=== PATIENT | male | born 1960 | race Caucasian/White ===

== ENCOUNTER → 2020-05-29 18:26 | Outpatient (ROUT) | payer SELFPAY ==
[2020-05-29 19:02] LABS: Add Manual Diff / Slide Review NO; Basophils Absolute Auto 100 /uL (0-100); Basophils Percent Auto 0.8 % (0-2); Eosinophils Absolute Auto 200 /uL (0-450); Eosinophils Percent Auto 2.4 % (2-4); Hematocrit 42.9 % (41-53); Hemoglobin 14.6 g/dL (13.5-17.5); Lymphocytes Absolute Auto 1200 /uL (1100-4500); Lymphocytes Percent Auto 19.7 % (25-40); Mean Corpuscular HGB Conc 33.9 % (30-36); Mean Corpuscular Hemoglobin 29.3 PG (26-34); Mean Corpuscular Volume 86.2 fL (80-100); Monocytes Absolute Auto 400 /uL (0-900); Monocytes Percent Auto 6.2 % (3-14); Neutrophils Absolute Auto 4500 /uL (1500-7000); Neutrophils Percent Auto 70.9 % (50-75); Platelet Count 220 X10^3/uL (150-400); Red Blood Cell Count 4.97 X10^6/uL (4.5-5.9); Red Cell Distribution Width 13.5 % (11.6-14.8); White Blood Cell Count 6.3 X10^3/uL (4.5-11.0)
[2020-05-29 19:27] LABS: Alanine Aminotransferase 23 IU/L (<50); Albumin 4.6 g/dL (3.5-5.0); Albumin Globulin Ratio 1.5 (1.0-2.8); Alkaline Phosphatase 49 U/L (38-126); Aspartate Aminotransferase 31 IU/L (17-59); BUN Creatinine Ratio 19.8 (6-22); Bilirubin Total 0.5 mg/dL (0.2-1.3); Blood Urea Nitrogen 16 mg/dL (9-20); Carbon Dioxide 31 mmol/L (22-32); Chloride 102 mmol/L (98-107); Cholesterol 321 mg/dL (140-199); Estimated Glomerular Filt Rate > 60.0 mL/min (>60); Globulin 3.1 g/dL (1.7-4.1); Glucose 102 mg/dL (70-100); HDL Cholesterol 49 mg/dL (40-60); HEMOLYSIS < 15 (0-50); LDL Cholesterol Calculated 215 mg/dL (<100); Potassium 4.7 mmol/L (3.4-5.1); Sodium 139 mmol/L (137-145); Total Protein 7.7 g/dL (6.3-8.2); Triglycerides 284 mg/dL (35-150)
[2020-05-29 19:45] LABS: TSH w/ Reflex to FT4 0.89 uIU/mL (0.47-4.68)
[2020-05-29 19:56] LABS: Prostate Specific Antigen Scrn 1.07 ng/mL (0.1-4.0)
== END ==
PROVIDERS: Visit Provider Internal Medicine
DX: Z00.00 Encounter for general adult medical examination without abnormal findings (principal); E78.2 Mixed hyperlipidemia; Z12.5 Encounter for screening for malignant neoplasm of prostate; D48.5 Neoplasm of uncertain behavior of skin
CPT/HCPCS: 80053; 80061; 84443; 85025; G0103

== ENCOUNTER 2020-11-05 20:13 | Emergency (ER) | payer OTHER, SELFPAY ==
[2020-11-05 20:18] VITALS: BP 132/77; PULSE 69; RESP 17; TEMP 36.2; O2SAT 99; BMI 27.9
[2020-11-05 20:52] VITALS: PULSE 66; O2SAT 100
[2020-11-05 21:00] VITALS: PULSE 64; O2SAT 100
[2020-11-05] MEDS: SODIUM CHLORIDE 0.9% 1,000 ML 1000 ML IV (21:01)
[2020-11-05] MEDS: ONDANSETRON 4 MG/2 ML INJ IV (21:01)
[2020-11-05] MEDS: KETOROLAC 30 MG/ML VIAL 15 MG IV (21:01)
[2020-11-05] MEDS: HYDROMORPHONE 0.5 MG INJ IV ×2 (21:02→22:00)
[2020-11-05 21:11] LABS: Add Manual Diff / Slide Review NO; Basophils Absolute Auto 0 /uL (0-100); Basophils Percent Auto 0.3 % (0-2); Eosinophils Absolute Auto 100 /uL (0-450); Eosinophils Percent Auto 1.1 % (2-4); Hematocrit 43.4 % (41-53); Hemoglobin 14.3 g/dL (13.5-17.5); Lymphocytes Absolute Auto 1400 /uL (1100-4500); Lymphocytes Percent Auto 18.4 % (25-40); Mean Corpuscular Hemoglobin 28.6 PG (26-34); Mean Corpuscular Volume 86.8 fL (80-100); Monocytes Absolute Auto 500 /uL (0-900); Monocytes Percent Auto 6.6 % (3-14); Neutrophils Absolute Auto 5600 /uL (1500-7000); Neutrophils Percent Auto 73.6 % (50-75); Platelet Count 216 X10^3/uL (150-400); Red Cell Distribution Width 13.3 % (11.6-14.8); White Blood Cell Count 7.7 X10^3/uL (4.5-11.0)
[2020-11-05 21:16] LABS: Alanine Aminotransferase 24 IU/L (<50); Albumin 4.6 g/dL (3.5-5.0); Albumin Globulin Ratio 1.4 (1.0-2.8); Alkaline Phosphatase 42 U/L (38-126); Aspartate Aminotransferase 26 IU/L (17-59); BUN Creatinine Ratio 14.1 (6-22); Bilirubin Total 0.5 mg/dL (0.2-1.3); Blood Urea Nitrogen 12 mg/dL (9-20); Calcium 9.8 mg/dL (8.4-10.2); Carbon Dioxide 27 mmol/L (22-32); Chloride 103 mmol/L (98-107); Estimated Glomerular Filt Rate > 60.0 mL/min (>60); Globulin 3.2 g/dL (1.7-4.1); Glucose 120 mg/dL (70-100); HEMOLYSIS < 15 (0-50); Potassium 3.9 mmol/L (3.4-5.1); Sodium 139 mmol/L (137-145); Total Protein 7.8 g/dL (6.3-8.2)
--- NOTE | 2020-11-05 22:22 | ED_ITS ---
HPI - General Adult General Chief complaint: Urogenital-Male Stated complaint: LOWER STOMACH PAIN Time Seen by Provider: 11/05/20 20:55 Source: patient Mode of arrival: Ambulatory Limitations: no limitations History of Present Illness HPI narrative: 60-year-old gentleman with history of hyperlipidemia and prior kidney stones presents with left lower abdominal and left flank pain. He had been having issues starting around 10:00 a.m. this morning with a dull ache that has waxed and waned over the course of the day getting worse and worse. In the emergency room his pain is quite severe. He describes no fevers, cough, chills, difficulty with urinating but has noticed increased frequency with the pain. No constipation or diarrhea, no palpitations or chest pain no headaches or myalgias. Related Data Previous Rx's Medication Instructions Recorded oxycodone-acetaminophen 1 tab PO Q6H PRN 5 Days #12 tab 11/06/20 tamsulosin 0.4 mg PO DAILY #30 cap 11/06/20 Allergies Allergy/AdvReac Type Severity Reaction Status Date / Time No Known Allergies Allergy Uncoded 09/24/17 11:57 Review of Systems Review of Systems Narrative: Remainder of complete review of systems is otherwise unremarkable except for that included in the HPI. Patient History Medical History Hyperlipidemia Ureterolithiasis Social History Smoking Status: Never smoker Smoking Status: Never smoker alcohol intake frequency: a few times a month Alcohol type: beer Substance Use Type: does not use Exam Narrative Exam Narrative: General: Healthy appearing, severe pain. Well-nourished well- developed HEENT: Moist mucous membranes, normal sclera with reactive pupils, Respiratory: Lungs are clear to auscultation, no wheezing no rales no rhonchi. Full and symmetrical air movement Cardiac: Regular rate and rhythm no murmurs no bruits Abdomen: Soft, nontender, good bowel tones, left flank pain Skin: Warm and dry, no rashes Neurologic: Grossly neurologically intact with no obvious asymmetries or a bnormalities Extremities: No trauma, well perfused Psych: Cooperative, appropriate insight and affect Initial Vital Signs Initial Vital Signs: Vital Signs Temperature 97.2 F L 11/05/20 20:18 Pulse Rate 69 11/05/20 20:18 Respiratory Rate 17 11/05/20 20:18 Blood Pressure 132/77 11/05/20 20:18 Pulse Oximetry 99 11/05/20 20:18 Course Orders Ordered: ED Orders 11/05/20 21:00 Complete Blood Count AUTO DIFF Stat Comprehensive Metabolic Panel Stat 11/05/20 22:46 CT kidney ureter bladder (KUB) Stat Hydromorphone HCl (Hydromorphone 0.5 Mg Inj) 0.5 mg IV Q15MIN PRN PRN Reason: Pain, Last Admin: 11/05/20 22:00 Dose: 0.5 mg Documented by: Admin: 11/05/20 21:02 Dose: 0.5 mg Documented by: BETO Discontinued Medications Hydromorphone HCl (Hydromorphone 1 Mg Inj) 1 mg IV NOW ONE Stop: 11/05/20 22:22 Last Admin: 11/05/20 22:24 Dose: 1 mg Documented by: BETO Sodium Chloride (Normal Saline 0.9%) 1,000 mls @ 1,000 mls/hr IV BOLUS ONE Stop: 11/05/20 21:54 Last Infusion: 11/05/20 22:27 Dose: 0 mls/hr Documented by: Admin: 11/05/20 21:01 Dose: 1,000 mls/hr Documented by: BETO Lidocaine HCl 7 ml/ Sodium (Chloride) 57 mls @ 342 mls/hr IV NOW ONE Stop: 11/05/20 22:56 Last Infusion: 11/06/20 00:33 Dose: 0 mls/hr Documented by: Admin: 11/05/20 23:03 Dose: 342 mls/hr Documented by: BETO Ketorolac Tromethamine (Ketorolac 30 Mg/Ml Vial) 15 mg IV NOW ONE Stop: 11/05/20 20:56 Last Admin: 11/05/20 21:01 Dose: 15 mg Documented by: BETO Ondansetron HCl (Ondansetron 4 Mg/2 Ml Inj) 4 mg IV NOW ONE Stop: 11/05/20 20:56 Last Admin: 11/05/20 21:01 Dose: 4 mg Documented by: BETO Oxycodone/Acetaminophen (Oxycodone/Apap 5/325 Prepack) 1 bottle MISC SEEINSTR ONE Stop: 11/06/20 00:50 Tamsulosin HCl (Tamsulosin 0.4 Mg Capsule) 0.4 mg PO NOW ONE Stop: 11/06/20 00:52 Vital Signs Vital signs: Vital Signs - 8 hr 11/05/20 20:18 11/05/20 20:52 11/05/20 21:00 Temperature 97.2 F L Pulse Rate 69 66 64 Respiratory Rate 17 Blood Pressure 132/77 Pulse Oximetry 99 100 100 Medical Decision Making Medical Records Medical records reviewed: Yes I reviewed the patient's medical records. Lab Data Lab results reviewed: Yes I reviewed the patient's lab results. Result diagrams: 11/05/20 21:00 11/05/20 21:00 Labs: Lab Results 11/05/20 11/05/20 Range/Units 21:00 21:00 WBC 7.7 (4.5-11.0) X10^3/uL RBC 5.00 (4.5-5.9) X10^6/uL Hgb 14.3 (13.5-17.5) g/dL Hct 43.4 (41-53) % MCV 86.8 (80-100) fL MCH 28.6 (26-34) PG MCHC 33.0 (30-36) % RDW 13.3 (11.6-14.8) % Plt Count 216 (150-400) X10^3/uL Neut % (Auto) 73.6 (50-75) % Lymph % (Auto) 18.4 L (25-40) % [place] % (Auto) 6.6 (3-14) % Eos % (Auto) 1.1 L (2-4) % Baso % (Auto) 0.3 (0-2) % Neut # (Auto) 5600 (0537-8691) /uL Lymph # (Auto) 1400 (8051-3869) /uL [place] # (Auto) 500 (0-900) /uL Eos # (Auto) 100 (0-450) /uL Baso # (Auto) 0 (0-100) /uL Sodium 139 (137-145) mmol/L Potassium 3.9 (3.4-5.1) mmol/L Chloride 103 (98-107) mmol/L Carbon Dioxide 27 (22-32) mmol/L BUN 12 (9-20) mg/dL Creatinine 0.85 (0.66-1.25) mg/dL Estimated GFR > 60.0 (>60) mL/min BUN/Creatinine Ratio 14.1 (6-22) Glucose 120 H (70-100) mg/dL Calcium 9.8 (8.4-10.2) mg/dL Total Bilirubin 0.5 (0.2-1.3) mg/dL AST 26 (17-59) IU/L ALT 24 (<50) IU/L Alkaline Phosphatase 42 (38-126) U/L Total Protein 7.8 (6.3-8.2) g/dL Albumin 4.6 (3.5-5.0) g/dL Globulin 3.2 (1.7-4.1) g/dL Albumin/Globulin Ratio 1.4 (1.0-2.8) Urine Dip Bedside Urine Glucose Negative Bedside Urine Bilirubin - Negative Bedside Urine Ketone - Negative Urine Specific [place] 1.030 Bedside Urine Occult Blood +++ Bedside Urine pH 6 Bedside Urine Protein - Negative Bedside Urine Urobilinogen - Negative Bedside Urine Nitrite - Negative Bedside Urine Leukocytes - Negative Esterase Point of care testing: Urine Dip Bedside Urine Glucose Negative Bedside Urine Bilirubin - Negative Bedside Urine Ketone - Negative Urine Specific [place] 1.030 Bedside Urine Occult Blood +++ Bedside Urine pH 6 Bedside Urine Protein - Negative Bedside Urine Urobilinogen - Negative Bedside Urine Nitrite - Negative Bedside Urine Leukocytes - Negative Esterase Imaging Data CT scan - abdomen/pelvis: Radiologist's Impression: Edematous left kidney with hydronephrosis secondary to an obstructive 3 mm stone in the left UVJ Rosa Cedeno MD [facility] Narrative Medical decision making narrative: 60-year-old gentleman presents with increasing flank pain over the course of the day. His last episode of kidney stone requiring medical intervention was in 1999 he does believe he passed a small in probably 3 weeks ago based on mild symptoms, discolored urine and rapid resolution. Initially pain was well controlled with Toradol and half a mg of Di laudid. Returned and required larger doses of Dilaudid without affect. IV lidocaine was added and the combination seem to prove effective. He is given a L of fluid as well. CT scan confirms 3 mm stone in the left UVJ without other intra-abdominal abnormalities. There is no evidence for infection at this time. Pain prior to discharge is well controlled. He is given instructions on use of tamsulosin as well as Percocet for severe pain control. He is safe for home discharge will follow-up with his primary care physician Discharge Plan Departure Patient Disposition: Home Clinical Impression: Ureterolithiasis Instructions: DI for Kidney Stones Activity Restrictions/Additional Instructions: Thank you for coming in today You have a 3 mm kidney stone on the left side just about ready to drop into your bladder. This is the cause of your pain. I am going to send you home with a couple tablets of Percocet and a prescription for more. You can use this before the pain builds up to the levels your experiencing this evening. Using 400 mg of ibuprofen (2 [id number] pills) and 1 Tylenol every 6 hours can be very helpful in controlling pain. For severe pain to ibuprofen and 1 Percocet will be helpful. Percocet is a narcotic and will make you constipated, please make sure you are using a stool softener, extra water extra fiber to avoid this complication Please strain your urine and once you see this 3 mm stone come out you can stop taking the Flomax/tamsulosin. This medicine is to help the stone get through the ureter a bit more easily If you have recurrent pain that can not be controlled with oral pain medications, developed fevers chills or other concerning symptoms please return to the ER for further evaluation Prescriptions: New oxycodone-acetaminophen 5-325 mg tablet 1 tab PO Q6H PRN (Reason: pain) 5 Days Qty: 12 RF: 0 tamsulosin 0.4 mg capsule 0.4 mg PO DAILY Qty: 30 RF: 0
[2020-11-05] MEDS: HYDROMORPHONE 1 MG INJ IV (22:24)
--- NOTE | 2020-11-05 22:39 | PC.NURSE ---
Room air SpO2 noted at 85% after dilaudid admin and pt sleeping. Easily arousable. 2 liters O2 applied by NC with sats now 99%
--- NOTE | 2020-11-05 22:46 | DI.CT.S_ITS ---
PROCEDURE: CT KIDNEY URETER BLADDER (KUB) INDICATIONS: renal colic TECHNIQUE: Noncontrast 5 mm thick sections acquired from the diaphragms to the symphysis. 5 mm thick coronal and sagittal reformats were then performed. For radiation dose reduction, the following was used: automated exposure control, adjustment of mA and/or kV according to patient size. COMPARISON: None. FINDINGS: Image quality: Excellent. Lung bases: Lung bases are clear. Heart size is normal. Question of small hiatal hernia. Urinary system: Both kidneys are normal in size. Obstructing calculus at the left UVJ measuring 0.4 cm, (2/78). Mild left hydroureteronephrosis. Nonobstructing right kidney stone measuring at 0.8 x 0.5 cm, (4/34). Bladder wall thickness is normal; no calcified bladder stones. Other solid organs: Liver is normal in size. Gallbladder is unremarkable. Pancreas is normal in contours. Spleen is normal in size. No adrenal nodules. Peritoneum and bowel: Unenhanced bowel loops demonstrate normal wall thickness and caliber. Normal appendix. No free fluid or air. Nodes and vessels: No retroperitoneal or mesenteric adenopathy by size criteria. Aorta and inferior vena cava are normal in caliber. Mild calcified plaque. Abdominal wall: No ventral hernias. Pelvis: No free pelvic fluid. No definite inguinal hernias or adenopathy. Bones: No suspicious bony lesions. Mild to moderate DDD. No vertebral body compression fractures. IMPRESSION: 1. Left UVJ obstructing calculus measuring at 0.4 cm with mild left hydroureteronephrosis. 2. Additional nonobstructing right kidney stone. This report is concordant with the overnight preliminary interpretation. Dictated by: Filipe Scott M.D. on 11/06/2020 at 8:01 Approved by: Filipe Scott M.D. on 11/06/2020 at 8:07
[2020-11-05] MEDS: LIDOCAINE 2% 7 ML in SODIUM CHLORIDE 0.9% 50 ML 342 ML IV (23:03)
[2020-11-06] MEDS: TAMSULOSIN 0.4 MG CAPSULE PO (01:07)
[2020-11-06] MEDS: OXYCODONE/APAP 5/325 PREPACK 1 BOTTLE MISC (01:07)
[2020-11-06 01:32] VITALS: BP 127/79; PULSE 77; RESP 16; O2SAT 98
--- NOTE | 2020-11-06 19:18 | PC.NURSE ---
called in prescription for flomax to [facility] as pt states he lost it. Approved by Dr. Yarbrough.
== END 2020-11-06 01:15 | disposition home or self-care (01) ==
PROVIDERS: Emergency Provider Emergency Medicine
DX: N20.1 Calculus of ureter (principal); Z87.442 Personal history of urinary calculi
CPT/HCPCS: 36415; 51798; 74176; 80053; 81003; 85025; 96361; 96365; 96375; 96376; 99284; J1170; J1885; J2405

== ENCOUNTER 2024-06-14 14:41 | Emergency (ER) | payer OTHER, SELFPAY ==
[2024-06-14] VITALS (13 sets, daily range): BP systolic 119–137; BP diastolic 70–83; PULSE 64–75; RESP 12–21; TEMP 36.8; O2SAT 95–99; BMI 32.1
--- NOTE | 2024-06-14 14:42 | EKG_ITS ---
[address] [address] Test Date: 2024-06-14 Pat Name: Suleman Dalal Department: [facility] Room: Gender: Male Churner: ROBERT HERNÁNDEZ : 1960 Requested By: Order Number: [id number] Reading MD: Vasquez Sue Measurements Intervals [place] Rate: 73 P: 49 [place]: 164 QRS: 1 QRSD: 92 T: 27 QT: 374 QTc: 412 Interpretive Statements Sinus rhythm with premature atrial complexes Electronically Signed On 06-17-2024 9:42:51 PST by Vasquez Sue
--- NOTE | 2024-06-14 14:42 | DI.RAD.S_ITS ---
PROCEDURE: XR CHEST 1V INDICATIONS: chest pain TECHNIQUE: One view of the chest was acquired. COMPARISON: None. FINDINGS: Surgical changes and devices: None. Lungs and pleura: Lungs are clear. No pleural effusions or pneumothorax. Mediastinum: Mediastinal contours appear normal. Heart size is normal. Bones and chest wall: No suspicious bony lesions. Overlying soft tissues appear unremarkable. IMPRESSION: No acute cardiopulmonary abnormality is seen. Dictated by: Nigel Rincon M.D. on 06/14/2024 at 15:11 Approved by: Nigel Rincon M.D. on 06/14/2024 at 15:12
--- NOTE | 2024-06-14 16:37 | ED.CHESTPAIN ---
HPI - Chest Pain General Chief Complaint: Chest Pain Stated Complaint: heart problems, chest pain Time Seen by Provider: 06/14/24 16:08 Source: patient Mode of arrival: Ambulatory Limitations: no limitations History of Present Illness HPI narrative: Patient is a 64-year-old male without significant past medical history presenting today with chest pain. He reports he started having left-sided chest pain when he was walking in it would stop when he stopped. He reports the pain is sharp shooting 1 particular area lasting only seconds and quickly resolving. It is nonradiating he denies any shortness of breath. He has no known coronary artery disease no known family history he has a nonsmoker. No abdominal pain nausea or vomiting. No recurrence of pain Related Data Allergies Allergy/AdvReac Type Severity Reaction Status Date / Time No Known Allergies Allergy Uncoded 04/01/24 14:45 Patient History Medical History Hyperlipidemia Ureterolithiasis Social History Smoking Status: Former smoker Smoking Status: Former smoker alcohol intake frequency: a few times a month Alcohol type: beer Exam Initial Vital Signs Initial Vital Signs: Vital Signs Temperature 98.2 F 06/14/24 14:43 Pulse Rate 75 06/14/24 14:43 Respiratory Rate 16 06/14/24 14:43 Blood Pressure 134/83 06/14/24 14:43 Pulse Oximetry 95 06/14/24 14:43 Oxygen Delivery Method Room Air 06/14/24 14:43 GENERAL: Alert pleasant well-appearing 64-year-old male and in no acute distress. HEENT: Head atraumatic,EOMI, pupils reactive, face symmetric, moist mucous membranes CARDIOVASCULAR: Regular rate and rhythm without murmurs, rubs or gallops. Non reproducible to palpation or arm movement RESPIRATORY: Breath sounds equal bilaterally, no wheezes rales or rhonchi. ABDOMEN: Soft, nontender. Normoactive bowel sounds all 4 quadrants. No guarding or rebound. EXTREMITIES: Normal range of motion, no clubbing or edema. Neurovascularly intact NEUROLOGICAL: Alert and oriented x4.Normal gait and speech. Cranial nerves II through XII grossly intact. SKIN: Warm, dry, no laceration, no petechiae, no rashes or lesions. Scores HEART Score Heart Score history: Slightly Suspicious Heart Score EKG: Normal Heart Score Age: 45-64 years old Heart Score risk factors: No known risk factors Heart Score troponin: < or = to normal limit Heart Score Total: 1 Course Orders Ordered: ED Orders 06/14/24 14:42 XR chest 1V Stat EKG-12 Lead Stat 06/14/24 16:46 Complete Blood Count AUTO DIFF Stat Comprehensive Metabolic Panel Stat D Dimer Stat Lipase Stat Magnesium Stat NT-proBNP (BNP-Adult 18+) Stat PTT Partial Thromboplastin Oleg Stat Prothrombin Time INR Stat Troponin & CK Cardiac Panel Stat 06/14/24 18:30 Trop I [Troponin I] Stat Discontinued Medications Aspirin (Aspirin 81 Mg Chew Tab) 324 mg PO NOW ONE Stop: 06/14/24 14:43 Last Admin: 06/14/24 19:14 Dose: Not Given Vital Signs Vital signs: Vital Signs - 8 hr 06/14/24 14:43 06/14/24 15:18 06/14/24 15:19 Temperature 98.2 F Pulse Rate 75 70 Respiratory Rate 16 Blood Pressure 134/83 134/80 Pulse Oximetry 95 98 Oxygen Delivery Method Room Air 06/14/24 15:19 06/14/24 15:30 06/14/24 15:30 Temperature Pulse Rate 71 69 Respiratory Rate 21 Blood Pressure 125/75 Pulse Oximetry 96 96 Oxygen Delivery Method 06/14/24 16:00 06/14/24 16:00 06/14/24 16:30 Temperature Pulse Rate 69 Respiratory Rate 14 Blood Pressure 126/72 119/74 Pulse Oximetry 97 Oxygen Delivery Method 06/14/24 16:30 06/14/24 17:17 06/14/24 17:30 Temperature Pulse Rate 67 74 69 Respiratory Rate 13 12 Blood Pressure Pulse Oximetry 97 98 Oxygen Delivery Method 06/14/24 17:44 06/14/24 17:44 06/14/24 18:00 Temperature Pulse Rate 69 Respiratory Rate 15 Blood Pressure 119/79 127/83 Pulse Oximetry 97 Oxygen Delivery Method 06/14/24 18:00 06/14/24 18:30 06/14/24 18:30 Temperature Pulse Rate 67 65 Respiratory Rate 16 14 Blood Pressure 125/73 Pulse Oximetry 98 98 Oxygen Delivery Method 06/14/24 19:00 06/14/24 19:00 Temperature Pulse Rate 64 Respiratory Rate 19 Blood Pressure 126/70 Pulse Oximetry 99 Oxygen Delivery Method MDM - Chest Pain Lab Data 06/14/24 16:46 06/14/24 16:46 Labs: Lab Results 06/14/24 06/14/24 Range/Units 16:46 18:30 WBC 6.4 (4.5-11.0) X10^3/uL RBC 4.87 (4.5-5.9) X10^6/uL Hgb 14.4 (13.5-17.5) g/dL Hct 42.9 (41-53) % MCV 88.0 (80-100) fL MCH 29.5 (26-34) PG MCHC 33.5 (30-36) % RDW 13.4 (11.6-14.8) % Plt Count 211 (150-400) X10^3/uL Neut % (Auto) 62.0 (50-75) % Lymph % (Auto) 26.9 (25-40) % [place] % (Auto) 8.1 (3-14) % Eos % (Auto) 2.3 (2-4) % Baso % (Auto) 0.7 (0-2) % Neut # (Auto) 4000 (1716-2410) /uL Lymph # (Auto) 1700 (7819-5566) /uL [place] # (Auto) 500 (0-900) /uL Eos # (Auto) 100 (0-450) /uL Baso # (Auto) 0 (0-100) /uL PT 11.8 (9.4-12.5) SECONDS INR 1.0 (0.9-1.3) APTT 38 H (25.1-36.5) SECONDS D-Dimer 309 (<500) ng/ml Sodium 135 L (137-145) mmol/L Potassium 4.0 (3.4-5.1) mmol/L Chloride 103 (98-107) mmol/L Carbon Dioxide 27 (22-32) mmol/L BUN 19 (9-20) mg/dL Creatinine 1.03 (0.66-1.25) mg/dL Estimated GFR > 60 (>60) mL/min BUN/Creatinine Ratio 18.4 (6-22) Glucose 89 (80-110) mg/dL Calcium 9.5 (8.4-10.2) mg/dL Magnesium 1.9 (1.6-2.3) mg/dL Total Bilirubin 0.7 (0.2-1.3) mg/dL AST 49 (17-59) IU/L ALT 70 H (<50) IU/L Alkaline Phosphatase 47 (38-126) U/L Total Creatine Kinase 152 (55-170) U/L Troponin I < 0.012 < 0.012 (0.01-0.034) ng/mL NT-Pro-B Natriuret Pep < 20 (<125) pg/mL Total Protein 7.9 (6.3-8.2) g/dL Albumin 4.5 (3.5-5.0) g/dL Globulin 3.4 (1.7-4.1) g/dL Albumin/Globulin Ratio 1.3 (1.0-2.8) Lipase 134 (23-300) U/L Imaging Data Chest x-ray: Radiologist's Impression: PROCEDURE: XR CHEST 1V INDICATIONS: chest pain TECHNIQUE: One view of the chest was acquired. COMPARISON: None. FINDINGS: Surgical changes and devices: None. Lungs and pleura: Lungs are clear. No pleural effusions or pneumothorax. Mediastinum: Mediastinal contours appear normal. Heart size is normal. Bones and chest wall: No suspicious bony lesions. Overlying soft tissues appear unremarkable. IMPRESSION: No acute cardiopulmonary abnormality is seen. Dictated by: Nigel Rincon M.D. on 06/14/2024 at 15:11 ECG Data Attestation: I personally reviewed and interpreted this ECG as follows: Prior ECG tracings: available for review Interpretation: Normal sinus rhythm rate 73 [place] interval 164 QRS [address] changes MDM Narrative Medical decision making narrative: [facility] CC: Chest pain Complicating co-morbidities: No known medical problems Medical records reviewed: PCP records reviewed Differential considered: Acute coronary syndrome pneumonia pleurisy PE Exam documented above, pertinent findings include: Nonreproducible chest pain awake alert oriented Lab Test results independently reviewed as above. Pertinent findings: Troponin negative x2 WBC 6.4 hemoglobin 14 4 hematocrit 42.9 platelets 211 Electrolytes stable creatinine of 1.0 Independently reviewed EKG as above No ischemia Imaging studies independently reviewed: No cardiopulmonary Consultations: None Treatments: None Re-evaluations: No recurrence of chest pain Discussion: Patient is a 64-year-old male presenting today with chest pain that he noticed while active lasting only a couple of seconds no recurrence of pain here in the ED it is nonradiating. He has no known risk factors here with a heart score of 1. 2- troponins no ischemia noted on his EKGs. At this time discussed with the may need outpatient follow-up Discharge Plan Departure Patient Disposition: Home Clinical Impression: Atypical chest pain Instructions: DI for Atypical Chest Pain Activity Restrictions/Additional Instructions: *You have been diagnosed with atypical chest pain *What to do: At this time I do recommend he follow up with your primary care provider in regards to further cardiac stress testing such as stress test and echocardiogram *Continue to take medications as directed *Follow up with your primary care provider in 2-3 days or call [phone] *Return to ER if you should have increasing chest pain shortness of breath or any new, worsening or concerning symptoms Referrals: Evy Stuart DO [Primary Care Provider] - Stand Alone Forms: Patient Portal/API/Survey
[2024-06-14 16:54] LABS: Add Manual Diff / Slide Review NO; Basophils Absolute Auto 0 /uL (0-100); Basophils Percent Auto 0.7 % (0-2); Eosinophils Absolute Auto 100 /uL (0-450); Eosinophils Percent Auto 2.3 % (2-4); Hematocrit 42.9 % (41-53); Hemoglobin 14.4 g/dL (13.5-17.5); Lymphocytes Absolute Auto 1700 /uL (1100-4500); Lymphocytes Percent Auto 26.9 % (25-40); Mean Corpuscular HGB Conc 33.5 % (30-36); Mean Corpuscular Hemoglobin 29.5 PG (26-34); Monocytes Absolute Auto 500 /uL (0-900); Monocytes Percent Auto 8.1 % (3-14); Neutrophils Absolute Auto 4000 /uL (1500-7000); Platelet Count 211 X10^3/uL (150-400); Red Blood Cell Count 4.87 X10^6/uL (4.5-5.9); Red Cell Distribution Width 13.4 % (11.6-14.8); White Blood Cell Count 6.4 X10^3/uL (4.5-11.0)
[2024-06-14 17:00] LABS: Prothrombin Time 11.8 SECONDS (9.4-12.5)
[2024-06-14 17:03] LABS: PTT Partial Thromboplastin Tim 38 SECONDS (25.1-36.5)
[2024-06-14 17:06] LABS: Alanine Aminotransferase 70 IU/L (<50); Albumin 4.5 g/dL (3.5-5.0); Albumin Globulin Ratio 1.3 (1.0-2.8); Alkaline Phosphatase 47 U/L (38-126); Aspartate Aminotransferase 49 IU/L (17-59); BUN Creatinine Ratio 18.4 (6-22); Bilirubin Total 0.7 mg/dL (0.2-1.3); Blood Urea Nitrogen 19 mg/dL (9-20); Calcium 9.5 mg/dL (8.4-10.2); Carbon Dioxide 27 mmol/L (22-32); Chloride 103 mmol/L (98-107); Creatine Kinase 152 U/L (55-170); Estimated Glomerular Filt Rate > 60 mL/min (>60); Globulin 3.4 g/dL (1.7-4.1); Glucose 89 mg/dL (80-110); HEMOLYSIS < 15 (0-50); Lipase 134 U/L (23-300); Magnesium 1.9 mg/dL (1.6-2.3); Sodium 135 mmol/L (137-145); Total Protein 7.9 g/dL (6.3-8.2)
[2024-06-14 17:17] LABS: NT-proBNP (BNP-Adult 18+) < 20 pg/mL (<125); Troponin I < 0.012 ng/mL (0.01-0.034)
[2024-06-14 17:22] LABS: D Dimer 309 ng/ml (<500)
[2024-06-14 19:06] LABS: Troponin I < 0.012 ng/mL (0.01-0.034)
== END 2024-06-14 19:41 | disposition home or self-care (01) ==
PROVIDERS: Emergency Provider Emergency Medicine; PCP Family Medicine
DX: R07.89 Other chest pain (principal)
CPT/HCPCS: 36415; 71045; 80053; 82550; 83690; 83735; 83880; 84484; 85025; 85379; 85610; 85730; 93005; 99283; 99284

== ENCOUNTER 2024-07-03 13:44 | Emergency (ER) | payer OTHER, SELFPAY ==
[2024-07-03 13:47] VITALS: BP 126/78; PULSE 80; RESP 18; TEMP 36.3; O2SAT 98; BMI 31.6
--- NOTE | 2024-07-03 13:51 | DI.RAD.S_ITS ---
PROCEDURE: XR FOOT LT MIN 3V INDICATIONS: INJURY TO 4TH 5TH TOES TECHNIQUE: 3 views of the foot were acquired. COMPARISON: None. FINDINGS: Bones: There is nondisplaced transverse fracture of the 5th proximal phalanx proximal metaphysis. No suspicious bony lesions. Soft tissues: No tibiotalar joint effusion. Achilles tendon appears normal. IMPRESSION: Fifth proximal phalanx fracture. Dictated by: Tatyana Vasquez M.D. on 07/03/2024 at 13:15 Approved by: Tatyana Vasquez M.D. on 07/03/2024 at 13:17
--- NOTE | 2024-07-03 13:58 | ED.LOWEXIN ---
HPI - Extremity Injury (Lower) <Susan Polanco PA-C - Last Filed: 07/03/24 15:21> General Chief Complaint: Extremity Injury, Lower Stated Complaint: L Foot Injury Time Seen by Provider: 07/03/24 13:57 Source: patient Mode of arrival: Ambulatory History of Present Illness HPI Narrative: Mr. Dalal is a very pleasant 64-year-old male with no reported past medical history who presents to the emergency department for left foot pain x1 day after stubbing it on a baby gate yesterday. Patient states at home they have baby gate up for their pets and he stepped into the gate with his right foot and then accidentally stubbed his left 4th and 5th toes directly on the baby gate. He experienced immediate pain. States he took ibuprofen and Tylenol which helped temporarily. Comes in today for worsening bruising of the left foot and concern for possible fracture. No numbness, tingling, weakness or decreased sensation in the foot or the toes. He denies any other injuries, no fall, no ankle pain, no other concerns. Related Data Home Medications Medication Instructions Recorded Confirmed No Known Home Medications 07/01/24 07/01/24 Allergies Allergy/AdvReac Type Severity Reaction Status Date / Time No Known Drug Allergies Allergy Verified 07/03/24 13:50 Review of Systems <Susan Polanco PA-C - Last Filed: 07/03/24 15:21> Review of Systems ROS Unobtainable: All systems reviewed & are unremarkable except as noted in HPI and below Patient History <Susan Polanco PA-C - Last Filed: 07/03/24 15:21> Medical History Hyperlipidemia Ureterolithiasis Social History Smoking Status: Former smoker Smoking Status: Former smoker alcohol intake frequency: a few times a month Alcohol type: beer Exam <Susan Polanco PA-C - Last Filed: 07/03/24 15:21> Narrative Exam Narrative: GENERAL: 64 year old patient appears stated age. Well-developed patient, in no acute distress. NECK: Trachea midline. Cervical ROM intact. CARDIOVASCULAR: Regular rate and rhythm. Brisk capillary refill on all toes and strong DP and PT pulses bilaterally. RESPIRATORY: ?Nonlabored respirations. ?Speaking in clear, full sentences.? EXTREMITIES: Tenderness to palpation left proximal phalanx. No tenderness to palpation of distal 5th or 4th toes. There is bruising overlying the base of the 5th and 4th toes. No tenderness to palpation of dorsal or plantar midfoot. NEURO: AOx3. ?Clear speech. ?Moves all 4 extremities appropriately, sensation intact to light touch on distal toes of bilateral feet and plantar and dorsal surfaces. SKIN: Mild erythema and ecchymosis overlying 5th and 4th MTP joints. Initial Vital Signs Initial Vital Signs: Vital Signs Temperature 97.3 F L 07/03/24 13:47 Pulse Rate 80 07/03/24 13:47 Respiratory Rate 18 07/03/24 13:47 Blood Pressure 126/78 07/03/24 13:47 Pulse Oximetry 98 07/03/24 13:47 Oxygen Delivery Method Room Air 07/03/24 13:47 <Alley Yarbrough MD - Last Filed: 07/03/24 18:26> Initial Vital Signs Initial Vital Signs: Vital Signs Temperature 97.3 F L 07/03/24 13:47 Pulse Rate 80 07/03/24 13:47 Respiratory Rate 18 07/03/24 13:47 Blood Pressure 126/78 07/03/24 13:47 Pulse Oximetry 98 07/03/24 13:47 Oxygen Delivery Method Room Air 07/03/24 13:47 Course <uSsan Polanco PA-C - Last Filed: 07/03/24 15:21> Orders Ordered: ED Orders 07/03/24 13:51 XR foot LT min 3V Stat Vital Signs Vital signs: Vital Signs - 8 hr 07/03/24 13:47 Temperature 97.3 F L Pulse Rate 80 Respiratory Rate 18 Blood Pressure 126/78 Pulse Oximetry 98 Oxygen Delivery Method Room Air <Alley Yarbrough MD - Last Filed: 07/03/24 18:26> Orders Ordered: ED Orders 07/03/24 13:51 XR foot LT min 3V Stat Vital Signs Vital signs: Vital Signs - 8 hr 07/03/24 13:47 Temperature 97.3 F L Pulse Rate 80 Respiratory Rate 18 Blood Pressure 126/78 Pulse Oximetry 98 Oxygen Delivery Method Room Air MDM - Extremity Injury (Lower) <MIKI Cooley Last Filed: 07/03/24 15:21> Medical Records Attestation: I reviewed the patient's medical records. Medical records narrative: ER visit 06/14/2024 for atypical chest pain and 11/05/2020 for ureterolithiasis. Imaging Data Left Foot X-Ray: My Impression: On my independent interpretation there is a fracture of the proximal phalanx of the 5th toe. Radiologist's Impression: PROCEDURE: XR FOOT LT MIN 3V INDICATIONS: INJURY TO 4TH 5TH TOES TECHNIQUE: 3 views of the foot were acquired. COMPARISON: None. FINDINGS: Bones: There is nondisplaced transverse fracture of the 5th proximal phalanx proximal metaphysis. No suspicious bony lesions. Soft tissues: No tibiotalar joint effusion. Achilles tendon appears normal. IMPRESSION: Fifth proximal phalanx fracture. [facility] Narrative Medical decision making narrative: 64-year-old male with no reported past medical history who presents to the emergency department for left foot pain x1 day after stubbing it on a baby gate yesterday. Differential diagnosis includes but is not limited to 5th toe fracture, 4th toe fracture, metatarsal fracture, contusion, sprain, strain, etc. On exam the patient is in no acute distress, nontoxic appearing, vital signs appropriate. He has bruising along the base of the left 5th and 4th toes and tenderness to palpation of the 5th proximal toe. Foot is neurovascularly intact with strong pulses, sensation intact to light touch and brisk capillary refill on distal toes. Left foot x-ray obtained in triage. Patient denies need for pain medication at this time. X-ray reveals 5th proximal phalanx fracture. Fifth and 4th toes mckayla-taped, postop shoe applied. Patient feels well walking around with postop shoe and does not want crutches. Discussed signs and symptoms to return to the ER for, otherwise advised to follow up with PCP/Orthopedics. Rice therapy and Tylenol/ibuprofen. Patient verbalized understanding of all information and is agreeable to the plan. He is ambulatory and stable for discharge home. Discharge Plan Departure Patient Disposition: Home Clinical Impression: Closed fracture of phalanx of left fifth toe Qualifiers: Encounter type: initial encounter Qualified Code(s): S92.502A - Displaced unspecified fracture of left lesser toe(s), initial encounter for closed fracture Instructions: DI for Toe Fracture Activity Restrictions/Additional Instructions: Dear Mr. Dalal, Today you were evaluated for left foot pain and found to have a left 5th toe fracture on x-ray. Please continue mckayla taping your 5th toe to your 4th toe for support and where the provided orthopedic shoe. Please use ibuprofen and Tylenol if needed for pain in addition to RICE therapy described below. Please follow up with a primary care doctor and/or an orthopedic doctor for further evaluation. You may call to schedule an appointment with [facility] at [phone]. Please take Ibuprofen (Motrin/Advil) or Acetaminophen (Tylenol) for pain. These are available over the counter. You may take Ibuprofen 600 mg every 8 hours with food for pain. You may also take Acetaminophen 650 mg every 4-6 hours for pain. Do not exceed 3000 mg of Tylenol a day as this can cause liver damage. Do not drink alcohol with either of these medications. Please use RICE therapy for your pain in addition to ibuprofen/acetaminophen. Rest the painful area. Ice the area of pain/swelling for at least 15 minutes, 4x a day. Compress the area of swelling using a brace, wrap, or splint if applied. Elevate the painful or swollen extremity by supporting it above the level of the heart with pillows when sitting or laying. Please follow up with your primary care doctor within the next 2-3 days for ER follow-up. (If you do not have a PCP you can call [phone]. ?to schedule an appointment with an [facility] Primary Care Provider) IF YOU DEVELOP ANY NEW OR WORSENING SYMPTOMS, RETURN TO THE ER! Please read the attached instructions, they highlight more specific treatments and interventions for you at home. Thank you for letting me participate in your care, Susan Polanco PA-C Prescriptions: No Action No Known Home Medications Referrals: Evy Stuart DO [Primary Care Provider] - Stand Alone Forms: Patient Portal/API/Survey ED Sign-out <Alley Yarbrough MD - Last Filed: 07/03/24 18:26> Cosign ED Attending Mihaela Attestation: I was immediately available in the department for consultation throughout this patient's visit. Alley Yarbrough MD
== END 2024-07-03 15:28 | disposition home or self-care (01) ==
PROVIDERS: Emergency Provider Physician Assistant; PCP Family Medicine
DX: S92.502A Displaced unspecified fracture of left lesser toe(s), initial encounter for closed fracture (principal); W22.8XXA Striking against or struck by other objects, initial encounter
CPT/HCPCS: 73630; 99282; 99283

== ENCOUNTER → 2024-07-12 07:42 | Outpatient (CLI) | payer OTHER, SELFPAY ==
--- NOTE | 2024-07-12 07:43 | DI.US.S_ITS ---
PROCEDURE: US ABD AORTA ANEURYSM SCREEN INDICATIONS: tobacco use history TECHNIQUE: Real time scanning was performed of the aorta and iliac arteries, with image documentation. COMPARISON: None. FINDINGS: Aorta: Proximal aortic diameter measures 2.2 cm. Mid-aorta measures 1.7 cm. Distal aortic diameter is 1.7 cm. Iliac arteries: Right common iliac artery measures 1.0 cm. Left common iliac artery measures 1.0 cm. IMPRESSION: No aortic aneurysm. Dictated by: Demarco Russell M.D. on 07/12/2024 at 10:59 Approved by: Demarco Russell M.D. on 07/12/2024 at 11:00
[2024-07-12 09:07] LABS: Cholesterol 309 mg/dL (140-199); HDL Cholesterol 43 mg/dL (40-60); LDL Cholesterol Calculated 240 mg/dL (<100); Triglycerides 129 mg/dL (35-150)
[2024-07-13 04:12] LABS: Apolipoprotein A-1 133 mg/dL (101-178); Apolipoprotein B 174 mg/dL (<90); Apolipoprotein B/A1 Ratio 1.3 ratio (0.0-0.7)
== END ==
PROVIDERS: PCP Family Medicine; Referring Provider Family Medicine; Visit Provider Family Medicine
DX: Z13.6 Encounter for screening for cardiovascular disorders (principal); Z87.891 Personal history of nicotine dependence; E66.3 Overweight; Z68.32 Body mass index [BMI] 32.0-32.9, adult; Z00.00 Encounter for general adult medical examination without abnormal findings; Z13.1 Encounter for screening for diabetes mellitus; Z13.220 Encounter for screening for lipoid disorders
CPT/HCPCS: 36415; 76706; 80061; 82172; 83036

== ENCOUNTER → 2025-04-13 10:15 | Outpatient (CLI) | payer OTHER, SELFPAY ==
--- NOTE | 2025-04-13 17:08 | DI.NM.S_ITS ---
DATE OF SERVICE: 04/13/2025 EXERCISE STRESS TEST INDICATIONS: Atypical chest pain, hyperlipidemia, tobacco abuse. CARDIAC STRESS: The patient underwent exercise stress test under the supervision of an attending staff using standard Hoang protocol. The patient walked on Hoang protocol for 6 minutes and 14 seconds, achieved maximum heart rate of 155, which was 98% of target heart rate. 7 METs of workload. TERRY positive 22%. Baseline blood pressure 124/90. Peak blood pressure 170/86. Baseline rhythm was sinus. During stress no convincing ischemic EKG changes seen. Some nonspecific ST-T changes. Rare PVCs. No chest pain. He had significant shortness of breath. Oxygen saturation 97% at maximum exercise. Normal recovery. CONCLUSION: Exercise stress test is negative for inducible ischemia. Normal hemodynamic response. Diminished exercise tolerance. No significant arrhythmias. No chest pain. He had significant shortness of breath. However, oxygen saturation 97% at maximum exercise. Correlate clinically. Suleman Dalal - NILTON/allan/EVELIN doc#: [id number]/job#: [id number] dd: 04/13/2025 16:48:00 dt: 04/13/2025 17:02:00 DICTATING /COPIES TO: Chucky Up MD COPIES MNE: NASIR;
== END ==
LOC: NUCM 10:15
PROVIDERS: PCP Family Medicine; Referring Provider Family Medicine; Visit Provider Family Medicine
DX: R07.9 Chest pain, unspecified (principal)
CPT/HCPCS: 93017

== ENCOUNTER → 2025-05-26 15:08 | Outpatient (CLI) | payer OTHER, SELFPAY | LOC: RESP 15:10 | PROVIDERS: PCP Family Medicine; Referring Provider Family Medicine; Visit Provider Family Medicine | DX: R06.02 Shortness of breath (principal); R94.2 Abnormal results of pulmonary function studies; Z87.891 Personal history of nicotine dependence | CPT/HCPCS: 94060; 94726; 94729 ==